=== PATIENT | male | born 1945 | race Caucasian/White ===

== ENCOUNTER 2019-04-09 10:35 | Day surgery (SDC) | payer MEDICARE, BC ==
[2019-04-06 10:57] VITALS: BMI 26.4
[~2019-04-09 10:35] MED LIST: DEXAMETHASONE SOD PHOSPHATE 10 MG/ML 1 ML VIAL IV ONE; DEXAMETHASONE SOD PHOSPHATE 4 MG/ML 1 ML VIAL IV ONE; FAMOTIDINE 20 MG/2 ML VIAL IV ONE; HYDROmorphone 0.5 MG/0.5 ML SYRINGE IVP PRN; LACTATED RINGERS 1,000 ML IV SCH; LIDOCAINE 1% 20 ML VIAL (10MG/ML) FOR IV START INTRADERMA PRN; MIDAZOLAM 2 MG/2 ML VIAL IV PRN; ONDANSETRON 4 MG/2 ML VIAL IVP ONE; SCOPOLAMINE 1.5MG/72HR PATCH TRANSDERM ONE
[2019-04-09] MEDS: OXYMETAZOLINE 0.05% NASL SPRAY 1 SPRAY BOTTLE NASAL ONE ×5 (11:30→11:53)
[2019-04-09 11:32] LABS: Glucose,Whole Blood 125 mg/dL (75-99)
[2019-04-09] MEDS ORDERED: diphenhydrAMINE 50 MG/ML 1 ML VIAL ONE (12:24)
[2019-04-09] MEDS ORDERED: fentaNYL (PF) 50 MCG/ML 2 ML AMP ONE (12:24)
[2019-04-09] MEDS ORDERED: MIDAZOLAM 2 MG/2 ML VIAL ONE (12:24)
[2019-04-09] MEDS ORDERED: PROPOFOL 10 MG/ML 20 ML VIAL IV ONE (12:24)
[2019-04-09] MEDS ORDERED: LIDOCAINE 1%-EPI 1:100,000 20 ML VIAL SQ ONE ×3 (12:47)
[2019-04-09] MEDS ORDERED: BUPIVACAIN-EPI 0.5%-1:200,000 30 ML VIAL SQ ONE ×3 (12:47)
[2019-04-09] MEDS ORDERED: BACITRACIN 500 UNIT/GM OINT 28.4 GM TUBE TOPICAL ONE (13:18)
[2019-04-09 13:32] VITALS: TEMP 97.8
--- NOTE | 2019-04-09 13:38 | P.OP ---
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 Vocalis muscle atrophy persisted and a larger implant was deemed necessary. All risks, benefits, and alternative therapies were discussed. Consent was obtained and all questions were answered. Operative Findings: Patient had improved vocalization with a #12 Powers implant, left Description of Procedure: Patient was taken to the operative room placed in the supine position IV sedation was administered and the neck was sterilely prepped and draped in usual fashion. We anesthetized the neck with lidocaine and bupivacaine an incision was made from the midline to the left approximately 3-4 cm in length. Our dissection carried out through the platysmas muscle to the strap muscles which were identified in the midline reflected off the thyroid cartilage and the thyroid cartilage was exposed. The old implant was removed which was a #10 Powers implant and the nasal contouring was from the inner aspect of the larynx and a #11 and 12 sizer was placed with listening to the voice and the patient. The #12 implant if is the best voice and a #12 male implant utilizing a Powers implant was inserted into the larynx on the left with excellent vocalization. There is no evidence of stridor. The strap muscles were reapproximated and closed with a 4-0 Vicryl the platysmal muscles were closed with a 4-0 Vicryl and the subcutaneous tissue closed with a 4-0 Monocryl the skin was closed with a 5-0 Prolene in a running nonlocking fashion. Steri- Strips were applied the patient tolerated this well and a follow-up is scheduled for 1 week. One week of voice rest is advised
[2019-04-09 14:14] VITALS: RESP 16
[2019-04-09 15:02] VITALS: BP 136/71; PULSE 70
== END 2019-04-09 15:00 | disposition home or self-care (01) ==
LOC: OR 10:35
PROVIDERS: ATTEND Otolaryngology
DX: J38.01 Paralysis of vocal cords and larynx, unilateral (principal); I25.10 Atherosclerotic heart disease of native coronary artery without angina pectoris; I10 Essential (primary) hypertension; E78.00 Pure hypercholesterolemia, unspecified; M19.90 Unspecified osteoarthritis, unspecified site; J44.9 Chronic obstructive pulmonary disease, unspecified; Z85.118 Personal history of other malignant neoplasm of bronchus and lung; Z95.5 Presence of coronary angioplasty implant and graft; Z90.49 Acquired absence of other specified parts of digestive tract; Z79.84 Long term (current) use of oral hypoglycemic drugs; Z79.1 Long term (current) use of non-steroidal anti-inflammatories (NSAID); Z79.82 Long term (current) use of aspirin; Z79.891 Long term (current) use of opiate analgesic; Z79.52 Long term (current) use of systemic steroids; Z79.02 Long term (current) use of antithrombotics/antiplatelets; Z79.899 Other long term (current) drug therapy; Z91.048 Other nonmedicinal substance allergy status
CPT/HCPCS: 31591; L8509; J2250; J1200; J1100; J2405; J0690; J3010; J2704